=== PATIENT | female | born 1970 | race Two or more races ===

== ENCOUNTER 2025-02-09 16:52 | Emergency (ER) | payer MEDICAID, OTHER ==
[~2025-02-09] VITALS: Ht 162.6 cm; Wt 86.5 kg
[2025-02-09] MEDS: LIDOCAINE 1% HCL (LOCAL ANESTH.) INJ 20ML MDV ONE (17:08)
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
[2025-02-09] MEDS: LIDOCAINE 1% HCL (LOCAL ANESTH.) INJ 20ML MDV ID ONE (18:13)
[2025-02-09] MEDS: cefTRIAXone SOD 1,000 MG VL IM ONE (19:27)
[2025-02-09] MEDS: TETANUS-DIPTH-ACEL PERTUSSIS 0.5ML SYR Tdap IM ONE (19:31)
[2025-02-09 19:34] VITALS: PULSE 94; RESP 19; O2SAT 100
[2025-02-09 21:22] VITALS: BP 154/72; PULSE 94; RESP 18; TEMP 98.2; O2SAT 99
== END 2025-02-09 19:40 | disposition short-term general hospital (02) ==
LOC: ER 16:52
DX: S62.636B Displaced fracture of distal phalanx of right little finger, initial encounter for open fracture (principal); V89.2XXA Person injured in unspecified motor-vehicle accident, traffic, initial encounter; Y93.89 Activity, other specified; Y92.410 Unspecified street and highway as the place of occurrence of the external cause; Y99.8 Other external cause status
CPT/HCPCS: 12041; 73130; 90471; 90715; 96372; 99285; J0696; J2003; 12031